=== PATIENT | female | born 1980 | race Caucasian/White ===

== ENCOUNTER 2019-06-21 09:52 | Emergency (ER) | payer OTHER, SELFPAY ==
[2019-06-21 09:59] VITALS: BP 117/84; PULSE 78; RESP 16; TEMP 37.1; O2SAT 100
--- NOTE | 2019-06-21 10:20 | ED.GENADULT ---
HPI - General Adult General Chief complaint: Upper Respiratory Infection Stated complaint: fever cough sore throat Time Seen by Provider: 06/21/19 10:20 Source: patient Mode of arrival: ambulatory Limitations: no limitations History of Present Illness HPI narrative: 38-year-old female patient presents to the [facility] with complaints of cold symptoms for the past 3 days. Patient states that she did not get a flu shot this year. Patient states she has had some runny nose, nasal congestion, sore throat and a slight cough. Did patient states she has been running fevers as high as 100. Denies any chest pain or shortness of breath. Patient denies any abdominal pain, nausea, vomiting or diarrhea. Related Data Home Medications Medication Instructions Recorded Confirmed escitalopram oxalate 20 mg PO DAILY 06/21/19 06/21/19 lisinopril-hydrochlorothiazide 1 tablet PO DAILY 06/21/19 06/21/19 Allergies Allergy/AdvReac Type Severity Reaction Status Date / Time dextromethorphan Allergy Unknown Cough Verified 06/21/19 10:17 Review of Systems Review of Systems: Narrative: CONSTITUTIONAL: Positive subjective fever, denies chills, or sweats. EYES: Denies visual changes, redness, or discharge. ENT: Positive rhinorrhea, congestion, sore throat, denies otalgia. CARDIOVASCULAR: Denies chest pain, palpitations, or edema. RESPIRATORY: Positive mild cough, denies dyspnea. GASTROINTESTINAL: Denies abdominal pain, nausea, vomiting, or diarrhea. GENITOURINARY: Denies dysuria or hematuria. SKIN: Denies rash or itching. MUSCULOSKELETAL: Denies back pain, joint pain, or myalgia. NEUROLOGIC: Denies headache, numbness, or weakness. PSYCHIATRIC: Denies anxiety or depression. [facility] Past Medical History Medical History (Updated 06/21/19 @ 10:30 by CHRISTOPHER Pompa) Anxiety Hypercholesterolemia Hypertension Liver disease Liver mass that is currently being monitored Seasonal allergies Surgical History Surgical History (Updated 06/21/19 @ 10:21 by CHRISTOPHER Pompa) H/O inguinal hernia repair 1 years old H/O sinus surgery Family History Family History Mother Hypertension Father Patient's father is in good health, Onset Age: 65 Family history of elevated blood lipids, Onset Age: 50 Social History Social History Smoking status: Never smoker Alcohol intake: current Comments At the time of my signature I agree with nursing past medical history, surgical, social, and family history. There is no relevant family history pertinent to the presenting complaint. Exam Narrative: Exam Narrative: GENERAL: Well-appearing, well-nourished, and in no acute distress. HEAD: Normocephalic, atraumatic. EYES: PERRLA and EOMI. ENT: Nares with erythema and edema noted bilaterally, patent, no rhinorrhea or epistaxis. Mucous membranes moist. Posterior pharynx with slight erythema but no tonsillar edema no exudates or lesions present. Bilateral TMs are clear with no erythema or foreign bodies in the canal. NECK: Supple. No lymphadenopathy CHEST: Clear to auscultation. No respiratory distress. HEART: Regular rate and rhythm. No murmur heard. Normal peripheral pulses. ABDOMEN: Soft, nontender, nondistended, normal active bowel sounds. EXTREMITIES: Normal range of motion. No edema. SKIN: Warm, dry, no rash. NEURO: No focal deficits. Alert and oriented x3. Course Reevaluation(s) Reevaluation #1: Notify patient she is negative today for strep. Discussed with her that we will discharge her home and she can take symptomatic treatment including Tylenol or ibuprofen for pain fevers, and antihistamine and a nasal spray for the congestion and sinus drainage. Discussed with patient I went ahead and write her off of work today and as long she is not running fever she can go back to work tomorrow. Patient verbalized understanding denies any ot
== END 2019-06-21 10:39 | disposition home or self-care (01) ==
PROVIDERS: Emergency Provider Nurse Practitioner Family; PCP Family Medicine
DX: J06.9 Acute upper respiratory infection, unspecified (principal); J02.9 Acute pharyngitis, unspecified; R05 Cough; F41.9 Anxiety disorder, unspecified; E78.00 Pure hypercholesterolemia, unspecified; I10 Essential (primary) hypertension
CPT/HCPCS: 87081; 87880; 99213; G0463

== ENCOUNTER 2020-03-04 11:17 | Outpatient (NON) | payer OTHER, SELFPAY ==
[2020-03-04 21:25] LABS: SARS-CoV-2 RNA PCR Negative
== END 2020-03-04 11:18 ==
PROVIDERS: PCP Family Medicine; Visit Provider Family Medicine
DX: Z01.812 Encounter for preprocedural laboratory examination (principal); Z20.828 Contact with and (suspected) exposure to other viral communicable diseases
CPT/HCPCS: 87635; C9803; U0003

== ENCOUNTER 2020-03-08 11:52 | Observation (INO) | payer OTHER, SELFPAY ==
[2020-03-08] VITALS (9 sets, daily range): BP systolic 105–123; BP diastolic 76–91; PULSE 73–76; RESP 16–20; TEMP 36.4–37; O2SAT 98–100; BMI 23.0
--- NOTE | ~2020-03-08 | CT_ITS ---
EXAMINATION: CT abdomen pelvis w con DATE: 03/08/2020 13:25 INDICATION: Abdominal pain TECHNIQUE: Computed tomography (CT) of the abdomen and pelvis was performed with 100 mL Omnipaque-350 intravenous contrast. Automated exposure control and iterative reconstruction technique were employe d. The dose-length product was 267.81 mGy-cm. COMPARISON: 10/06/2016 FINDINGS: Lung bases are clear. Heart size is normal. No pericardial or pleural effusion. No interval change in a a few likely benign relatively low-attenuation lesions in segment 3 and 4B of the liver, the large st measuring up to 1.1 cm which can be seen dating back to 07/29/2007. There is a single new 5 mm low-a ttenuation lesion in segment 6 of the liver which is too small to definitively characterize. Spleen, pancreas, left kidney and bilateral adrenal glands are normal. 1 cm right renal cyst. Bowels includin g the appendix are normal. 1.9 cm left ovarian cyst. Bladder, anteverted uterus and right adnexa are normal. No free intraperitoneal gas or fluid. No pathologically enlarged abdominal or pelvic lymphade nopathy. Minimal scattered degenerative skeletal changes. IMPRESSION: 1. No acute intra-abdominal/pelvic process. Reviewed, dictated and finalized at location B.
--- NOTE | 2020-03-08 12:08 | ED.GENADULT ---
HPI - General Adult General Chief complaint: GI Bleed Stated complaint: Blood in Stool Neg Covid Test 03/04 Time Seen by Provider: 03/08/20 11:55 Source: RN notes reviewed History of Present Illness HPI narrative: Patient presents to emergency department from Dr. Bolton's office for GI bleed. Patient states has had approximately 5 episodes of bright red blood per rectum starting this morning. Patient states has been associated with abdominal pain located across the mid abdomen. States that abdominal pain began yesterday. Patient denies any fevers or chills chest pain shortness of breath nausea vomiting or any other symptoms denies any blood thinner use Related Data Home Medications Medication Instructions Recorded Confirmed cetirizine 10 mg tablet 10 mg PO DAILY 07/26/19 Allergies Allergy/AdvReac Type Severity Reaction Status Date / Time dextromethorphan Allergy Unknown Cough Verified 03/08/20 12:21 Review of Systems Review of Systems: Narrative: Gen.: Denies fevers or chills ENT: Denies congestion Respiratory: Denies shortness of breath or cough CV: Denies chest pain or palpitations GI: See HPI denies burning, urgency, frequency or hematuria Musculoskeletal: Denies back pain or muscle pain Neuro: Denies numbness, tingling, weakness or focal weakness Skin: Denies rash Except as documented, all other systems reviewed and negative [facility] Past Medical History Medical History Anxiety Hypercholesterolemia Hypertension Liver disease Liver mass that is currently being monitored Seasonal allergies Surgical History Surgical History (Updated 06/21/19 @ 10:21 by CHRISTOPHER Pompa) H/O inguinal hernia repair 1 years old H/O sinus surgery Family History Family History Mother Hypertension Father Patient's father is in good health, Onset Age: 65 Family history of elevated blood lipids, Onset Age: 50 Social History Social History Smoking packs per day: 0.5 Smoking cigarettes per day: 10.0 Years smoked: 19 Smoking pack-years: 9.50 Smoking status: Current some day smoker Tobacco type: cigarettes Second hand tobacco smoke exposure: No Smoking end date: 03/02/20 Alcohol intake: current Drinks per week: 5 Substance use: never Substance use type: does not use Gender identity (if verbalized by the patient): Male Exam Narrative: Exam Narrative: APPEARANCE: No acute distress, nontoxic, resting in bed HEENT: Normocephalic, atraumatic, OMM RESPIRATORY: No respiratory distress, clear to auscultation bilaterally with no rhonchi wheezing or rales CARDIOVASCULAR: RRR s murmur ABDOMINAL: Soft, nondistended, tender palpation right lower quadrant no tenderness in right upper quadrant and left upper quadrant left lower quadrant, no rebound or guarding Rectal: No hemorrhoids or fissures, no active bleeding, red stool that is Hemoccult positive MUSCULOSKELETAl: Moves all extremities. No clubbing, cyanosis or edema. NEURO: Awake and alert. Following commands, speech normal, no focal deficits SKIN:: Warm, dry. Normal Color PSYCHIATRIC: Normal affect/mood Course Course Emergency Course: Called and discussed with ALONDRA Campos for Dr. Garcia presentation work-up agrees with admission at this time Discussed with Dr. Conway for GI presentation work-up. We will plan for n.p.o. after midnight Discussed with patient and family results of workup and diagnosis. Discussed need for admission. Patient and family understand and agree to current treatment plan Vital Signs Vital signs: Vital Signs Temperature 97.6 F 03/08/20 12:15 Pulse Rate 75 03/08/20 12:15 Respiratory Rate 18 03/08/20 12:15 Blood Pressure 113/82 03/08/20 12:15 Pulse Oximetry 100 03/08/20 12:15 Temperature 97.6 F 03/08/20 12:15 Pulse Rate 7
[2020-03-08 12:29] LABS: Basophils Percent Auto 0.5 % (0.2-1.2); Eosinophils Absolute Auto 0.1 K/mm3 (0-0.3); Eosinophils Percent Auto 1.2 % (0-4.4); Hematocrit 38.2 % (37.0-47.0); Hemoglobin 13.4 g/dL (12.0-15.0); Immature Granulocyte Absolute 0.02 K/mm3 (0.00-0.031); Immature Granulocyte Percent A 0.2 % (0-0.5); Lymphocytes Absolute Auto 2.55 K/mm3 (0.9-3.2); Lymphocytes Percent Auto 31.2 % (18.3-44.2); Mean Corpuscular HGB Conc 35.1 g/dl (32-36); Mean Corpuscular Hemoglobin 33.2 pg (26-34); Mean Corpuscular Volume 94.6 fl (80-100); Mean Platelet Volume 10.1 fl (7.4-10.4); Monocytes Absolute Auto 0.5 K/mm3 (0.1-0.6); Monocytes Percent Auto 6.1 % (2.6-8.5); Neutrophils Percent Auto 60.8 % (45.5-73.1); Platelet Count Result 250 k/mm3 (150-375); Red Blood Count 4.04 M/mm3 (4.2-5.4); Red Cell Distribution Width 12.3 % (11.5-14.5); White Blood Count 8.2 K/mm3 (4.5-10.0)
[2020-03-08] MEDS: SODIUM CHLORIDE 0.9% IV 1,000 ML 999 ML IV CONT (12:30)
[2020-03-08 12:39] LABS: Partial Thromboplastin Time 29.6 SECONDS (22.3-36.8); Prothrombin Time 12.6 Seconds (11.1-14.7)
[2020-03-08 12:41] LABS: Alanine Aminotransferase 18 U/L (4-35); Albumin Level 4.8 g/dL (3.5-5.1); Alkaline Phosphatase 61 U/L (38-126); Anion Gap 11 mmol/L (8-16); Aspartate Amino Transferase 29 U/L (14-36); Bilirubin,Total 0.7 mg/dL (0.2-1.3); Blood Urea Nitrogen 12 mg/dL (7-17); Calcium 9.7 mg/dL (8.4-10.2); Carbon Dioxide 24 mmol/L (22-30); Chloride 103 mmol/L (98-107); Estimated CRCL calculation 75 ml/min; Estimated Glomerular Filt Rate > 60; Glucose 103 mg/dL (65-105); Lactic Acid Reflex 0.7 mmol/L (0.7-2.1); Potassium 3.9 mmol/L (3.4-5.0); Sodium 138 mmol/L (137-145)
[2020-03-08 14:27] LABS: Hematocrit 35.1 % (37.0-47.0); Hemoglobin 12.2 g/dL (12.0-15.0)
--- NOTE | 2020-03-08 14:30 | PM.IMHP ---
H&P: HPI History of Present Illness Date/Time: 03/08/20 14:30 Chief complaint: Rectal bleeding. Narrative: Mary Zimmerman is a 39-year-old female with hypertension, depression, and anxiety who presented to the emergency department earlier today for evaluation of rectal bleeding. She was awakened from sleep at approximately 03:00 with diffuse abdominal cramping. Shortly thereafter she had the urge to have a bowel movement and reports having a large bout of diarrhea, which she goes on to say is not unusual for her as she reportedly has a history of irritable bowel syndrome. In any regard, she continued to have intermittent abdominal cramping but then began passing bright red blood per rectum for total 5 to 6 times since the outset today. There is no pain when having bowel movements, only the abdominal cramping prior to. She perhaps had some slight nausea around the same period of time, has been having more belching the unusual, and has also had mild lightheadedness. She has never had similar symptoms in the past but recalls one occasion in which she noticed a small amount of bright red blood on the toilet tissue after straining to have a bowel movement. She has no known history of hemorrhoids, diverticulosis, or diverticulitis. She denies GERD and symptoms of indigestion. No history of peptic ulcers. Of note, last weekend she was suffering from a headache and sinus congestion and developed a fever up to 102? on Wednesday which persisted through Wednesday. She was taking Tylenol to treat her fevers, and denies using NSAIDs. She does note that she tested negative for COVID this past Wednesday. Review of Systems Review of Systems: Narrative: Twelve systems were reviewed with pertinent positives and negatives as per HPI. She has been afebrile since Wednesday with sinus symptoms last as detailed in HPI. No recent travel. No exposure to those positive for COVID-19 to her knowledge. She had a mild cough over the weekend but that has resolved. No shortness of breath. She denies chest pain and palpitations. No syncope or near syncope. Last menstrual period was at the end of January. Of note, I received a call from the patient's nurse that during her screening questions that she had been slight for being a moderate risk for suicide. With further questioning she reports that about 3 years ago she took an excess amount of pills in a suicidal gesture, but no longer has thoughts of suicide, homicide, and she denies having a plan for such. Except as documented, all other systems were reviewed and are negative. [facility] Past Medical History Medical History (Updated 03/08/20 @ 19:39 by Beth Maguire PA-C) Anxiety Depression With history of suicidal gesture in 2017. Hypercholesterolemia Hypertension Liver mass Incidental masses noted on the liver with prior CT of the abdomen pelvis, being monitored. Seasonal allergies Surgical History Surgical History (Updated 03/08/20 @ 19:36 by Beth Maguire PA-C) History of inguinal hernia repair (~1980) History of sinus surgery Family History Family History Mother Hypertension Fibromyalgia Diverticulosis Father Patient's father is in good health, Onset Age: 65 Lymphoma Social History Social History (Updated 03/08/20 @ 19:38 by Beth Maguire PA-C) Social History: Surrogate decision maker: Barbara Alonzo, friend. Code status: Full code. Smoking packs per day: 0.5 Smoking cigarettes per day: 10.0 Years smoked: 20 Smoking pack-years: 10.00 Smoking status: Former smoker Tobacco type: cigarettes Second hand tobacco smoke exposure: No Smoking end date: 03/02/20 Alcohol intake: current Drinks per week: 12 Substance use: never Substance use type: does not use Additional living arrangements comments: Lives in her own home in both also with her dog. She has no children. Additional occupatio
--- NOTE | 2020-03-08 14:40 | PC.NURSE ---
Continue to await bed assignment. Denies needs at present.
--- NOTE | 2020-03-08 15:30 | PC.NURSE ---
Report to ROSALINDA Paul, to continue care. Awaiting bed assignment.
--- NOTE | 2020-03-08 17:14 | ADMGEN ---
This patient, Mary Zimmerman, was admitted to 3 [facility] Surg Room 313-01 @ 1713. Patient/family oriented to hospital policies and general routines including ID bracelet, bed and alarms, visiting hours, pain management, procedures, bathroom and other care routines, personal items, smoking policy, room service/diet, and visiting hours. Information on how to activate the Rapid Response Team has been discussed. Patient/Family are encouraged to report perceived risks to care and to ask questions if they do not understand what they are told or what they should do.
[2020-03-08] MEDS: SODIUM CHLORIDE 0.9% IV 1,000 ML 125 ML IV CONT (17:48)
[2020-03-08] MEDS: ONDANSETRON INJ 4 MG/2 ML VIAL IV PUSH (23:30)
[2020-03-09 03:25] LABS: Basophils Percent Auto 0.5 % (0.2-1.2); Eosinophils Absolute Auto 0.1 K/mm3 (0-0.3); Eosinophils Percent Auto 0.9 % (0-4.4); Hematocrit 35.6 % (37.0-47.0); Hemoglobin 12.3 g/dL (12.0-15.0); Immature Granulocyte Absolute 0.03 K/mm3 (0.00-0.031); Immature Granulocyte Percent A 0.4 % (0-0.5); Lymphocytes Absolute Auto 2.21 K/mm3 (0.9-3.2); Lymphocytes Percent Auto 27.5 % (18.3-44.2); Mean Corpuscular HGB Conc 34.6 g/dl (32-36); Mean Corpuscular Hemoglobin 33.3 pg (26-34); Mean Corpuscular Volume 96.5 fl (80-100); Monocytes Absolute Auto 0.4 K/mm3 (0.1-0.6); Monocytes Percent Auto 5.2 % (2.6-8.5); Neutrophils Absolute Auto 5.3 K/mm3 (1.3-6.7); Neutrophils Percent Auto 65.5 % (45.5-73.1); Platelet Count Result 238 k/mm3 (150-375); Red Blood Count 3.69 M/mm3 (4.2-5.4); Red Cell Distribution Width 12.6 % (11.5-14.5)
[2020-03-09 03:35] LABS: Anion Gap 5 mmol/L (8-16); Blood Urea Nitrogen 10 mg/dL (7-17); Calcium 9.1 mg/dL (8.4-10.2); Carbon Dioxide 27 mmol/L (22-30); Chloride 108 mmol/L (98-107); Estimated CRCL calculation 75 ml/min; Estimated Glomerular Filt Rate > 60; Glucose 108 mg/dL (65-105); Potassium 4.1 mmol/L (3.4-5.0); Sodium 140 mmol/L (137-145)
[2020-03-09 06:00] VITALS: BP 106/70; PULSE 76; RESP 20; TEMP 36.9; O2SAT 98
[2020-03-09 08:00] VITALS: PULSE 76; RESP 20; O2SAT 98
--- NOTE | 2020-03-09 08:16 | WPDGICN ---
Assessment and Plan Assessment and plan (1) Rectal bleeding: Code(s): K62.5 - Hemorrhage of anus and rectum Status: Acute Assessment and Plan: probably infectious gastroenteritis/colitis, less likely ischemic colitis however she is feeling much better now. Hb stable, no fever, no leukocytosis, CT scan was unremarkable. Will advance her diet and if she can tolerate and still asymptomatic then she can go home and follow up office she also will need a colonoscopy as outpatient, probably in 4-6 weeks (2) Abdominal pain: Code(s): R10.9 - Unspecified abdominal pain Status: Acute Assessment and Plan: improved now, much better (3) Diarrhea: Code(s): R19.7 - Diarrhea, unspecified Status: Acute Assessment and Plan: will get stool cultures if she has more diarrhea (4) Hypertension: Code(s): I10 - Essential (primary) hypertension Status: Acute GI Consult Note Consult date/time: 03/09/20 08:16 Reason for consult: rectal bleeding, abdominal pain HPI: Mary Zimmerman is a 39 year old female with history of hypertension, depression, and anxiety who came to the emergency department yesterday with rectal bleeding. She says that about a week ago had flu-like symptoms, headache with fever, tested negative for COVID this past Wednesday and was feeling better but she was awakened from sleep yesterday with diffuse abdominal cramping followed by large amount of watery diarrhea then had total of 5-6 episodes of bright red blood per rectum for total 5 to 6 times since the outset today. CT scan in ER was normal, also normal CBC and CMP and no fever. She was admitted to hospital. She has not had any more diarrhea, bleeding or pain since admission. Doing much better. She denies GERD and symptoms of indigestion. No history of peptic ulcers. Of note, last weekend she was suffering from a headache and sinus congestion and developed a fever up to 102? on Wednesday which persisted through Wednesday. She was taking Tylenol to treat her fevers, and denies using NSAIDs. Never had colonoscopy. She says that at baseline has IBS but almost never bothers her. Review of Systems Constitutional: Constitutional: Reports chills and Denies headache(s) Eyes: Eyes: Denies blurry vision ENT: Reports Normal hearing present, Denies headache(s) and Denies neck pain Cardiovascular: Cardiovascular: Denies chest pain and Denies dyspnea Respiratory: Respiratory: Denies dyspnea Gastrointestinal: Gastrointestinal: Reports abdominal pain, Reports hematochezia and Reports diarrhea Genitourinary: Genitourinary: Denies dysuria Musculoskeletal: Musculoskeletal: Denies neck pain Integumentary/Breasts: Skin/Breast: Denies dry skin Neurologic: Reports Normal hearing present, Denies headache(s) and Denies weakness Psychiatric: Psychiatric: Denies anxiety Endocrine: Endocrine: Denies change in body appearance Hematologic/Lymphatic: Hematologic/Lymphatic: Denies easy bleeding Allergic/Immunologic: Allergic/Immunologic: Denies urticaria PMFSH Past Medical History Medical History (Updated 03/09/20 @ 08:22 by Timo Garcia MD) Anxiety Depression With history of suicidal gesture in 2017. Diarrhea Hypercholesterolemia Hypertension Liver mass Incidental masses noted on the liver with prior CT of the abdomen pelvis, being monitored. Rectal bleeding Seasonal allergies Surgical History Surgical History (Updated 03/08/20 @ 19:36 by Beth Maguire PA-C) History of inguinal hernia repair (~1980) History of sinus surgery Family History Family History Mother Hypertension Fibromyalgia Diverticulosis Father Patient's father is in good health, Onset Age: 65 Lymphoma Social History Social History (Updated 03/08/20 @ 19:38 by Beth Maguire PA-C) Social History: Surrogate decision maker: Barbara Alonzo, friend. Code sta
[2020-03-09 08:41] LABS: Hemoglobin 11.9 g/dL (12.0-15.0)
[2020-03-09] MEDS: hydroCHLOROthiazide 12.5 MG CAPSULE PO (09:48)
[2020-03-09] MEDS: CHOLECALCIFEROL 1,000 UNITS TABLET 5000 UNITS PO (09:48)
[2020-03-09] MEDS: LORATADINE 10 MG TABLET PO (09:49)
[2020-03-09] MEDS: lisinopriL 10 MG TABLET PO (09:49)
[2020-03-09] MEDS: ESCITALOPRAM OXALATE 10 MG TABLET 20 MG PO (09:49)
[2020-03-09 14:00] VITALS: BP 111/72; PULSE 90; RESP 16; TEMP 36.3; O2SAT 100
--- NOTE | 2020-03-09 16:16 | PM.IMPN ---
Progress Note: A&P Assessment and Plan (1) GI bleed: Code(s): K92.2 - Gastrointestinal hemorrhage, unspecified Status: Acute (2) Hypertension: Code(s): I10 - Essential (primary) hypertension Status: Acute (3) Anxiety: Code(s): F41.9 - Anxiety disorder, unspecified Status: Acute Additional Plan 03/08/20:: The patient was admitted to the hospital service overnight for further evaluation of lower GI bleed. Most likely hemorrhoidal or possibly even diverticular bleeding; no evidence of diverticulitis or other acute pathology by CT of the abdomen /pelvis. Hemoglobin 12.2. Dr. Garcia has been consulted and his input is appreciated. Her blood pressures were reviewed and they are well controlled on her home medication. Escitalopram resumed for anxiety and history of depression; no acute concerns or issues despite elevated [place] suicide score (increased due to prior history of suicidal gesture). 03/09/20:: No recurrent episodes of rectal bleeding but no BMs either. Probably infectious bloody diarrhea. Check stool culture to exclude EColi. She did have viral illness with high fevers a few days prior to admission. Hgb relatively stable with repeat at 11.9. Continue low fiber diet for now. Appreciate GI input. SCDs for DVT prophylaxis. Subjective Date/time seen: 03/09/20 16:16 Interval history: Date of service: 03/09 39yo female here for GI bleed. She feels better. Abd pain better until she ate and now worse. No BMs since admisisn. No n/v. Concerned about recurrent symptoms. Abd pain mostly RLQ and left flank Exam Narrative: Exam Narrative: AF 97.4 111/72 90 16 100% ra Gen - NARD Chest - CTA bilaterally, nml RR CV - RRR S1/S2 Abd - Soft, ND, Positive BS, no guarding Ext - No pedal edema Psych - Nml mood and affect Skin - Warm and dry Objective Data Vital Signs Vital Signs: Vital Signs - 24 hr 03/08/20 17:18 03/08/20 22:00 03/09/20 06:00 Temperature 97.5 F L 98.6 F 98.4 F Pulse Rate 73 75 76 Respiratory Rate 18 20 20 Blood Pressure 123/82 118/76 106/70 Pulse Oximetry 100 100 98 03/09/20 08:00 03/09/20 14:00 Temperature 97.4 F L Pulse Rate 76 90 Respiratory Rate 20 16 Blood Pressure 111/72 Pulse Oximetry 98 100 Intake/Output Intake/Output: Intake & Output 03/06/20 03/07/20 03/08/20 03/09/20 23:59 23:59 23:59 23:59 Intake Total 1000 980 Output Total 300 Balance 1000 680 Meds/Results Medications: Active Medications Generic Name Dose Route Start Last Admin Trade Name Freq PRN Reason Stop Dose Admin Escitalopram Oxalate 20 mg 03/09/20 09:00 03/09/20 09:49 Escitalopram Oxalate 10 Mg Tablet PO 20 mg DAILY GRACY Administration Hydrochlorothiazide 12.5 mg 03/09/20 09:00 03/09/20 09:48 Hydrochlorothiazide 12.5 Mg Capsule PO 12.5 mg DAILY GRACY Administration Lisinopril 10 mg 03/09/20 09:00 03/09/20 09:49 Lisinopril 10 Mg Tablet PO 10 mg DAILY GRACY Administration Loratadine 10 mg 03/09/20 09:00 03/09/20 09:49 Loratadine 10 Mg Tablet PO 10 mg QAM GRACY Administration Ondansetron HCl 4 mg 03/08/20 22:16 03/08/20 23:30 Ondansetron Inj 4 Mg/2 Ml Vial IV PUSH 4 mg Q6H PRN Administration Nausea And Vomiting Vitamin D 5,000 units 03/09/20 09:00 03/09/20 09:48 Cholecalciferol 1,000 Units Tablet PO 5,000 units DAILY GRACY Administration Radiology Results: ITS Impressions Abdomen/Pelvis CT 03/08/20 13:27 IMPRESSION: 1. No acute intra-abdominal/pelvic process. Labs Labs: Laboratory Results - last 24 hr 03/09/20 03/09/20 03/09/20 03:15 03:15 08:24 WBC 8.0 RBC 3.69 L Hgb 12.3 11.9 L Hct 35.6 L 34.0 L MCV 96.5 MCH 33.3 MCHC 34.6 RDW 12.6 Plt Count 238 MPV 10.0 Immature Gran % (Auto) 0.4 Neut % (Auto) 65.5 Lymph % (Auto) 27.5 [place] % (Auto) 5.2 Eos % (Auto) 0.9 Baso % (Auto) 0.5 Lymph
[2020-03-09 17:13] LABS: Hematocrit 35.7 % (37.0-47.0); Hemoglobin 12.5 g/dL (12.0-15.0)
[2020-03-09 22:00] VITALS: BP 102/66; PULSE 68; RESP 16; TEMP 36.7; O2SAT 99
[2020-03-10 06:00] VITALS: BP 100/63; PULSE 78; RESP 16; TEMP 36.4; O2SAT 100
[2020-03-10 06:25] LABS: Hematocrit 37.1 % (37.0-47.0); Hemoglobin 12.8 g/dL (12.0-15.0); Mean Corpuscular HGB Conc 34.5 g/dl (32-36); Mean Corpuscular Hemoglobin 33.3 pg (26-34); Mean Corpuscular Volume 96.6 fl (80-100); Mean Platelet Volume 10.2 fl (7.4-10.4); Platelet Count Result 277 k/mm3 (150-375); Red Blood Count 3.84 M/mm3 (4.2-5.4); Red Cell Distribution Width 12.6 % (11.5-14.5); White Blood Count 6.8 K/mm3 (4.5-10.0)
[2020-03-10] MEDS: LORATADINE 10 MG TABLET PO (08:39)
[2020-03-10] MEDS: ESCITALOPRAM OXALATE 10 MG TABLET 20 MG PO (08:39)
[2020-03-10] MEDS: hydroCHLOROthiazide 12.5 MG CAPSULE PO (08:40)
[2020-03-10] MEDS: lisinopriL 10 MG TABLET PO (08:40)
[2020-03-10] MEDS: CHOLECALCIFEROL 1,000 UNITS TABLET 5000 UNITS PO (08:40)
--- NOTE | 2020-03-10 10:44 | WPDGIPROGNO ---
Progress Note: A&P Assessment and Plan (1) Rectal bleeding: Code(s): K62.5 - Hemorrhage of anus and rectum Status: Acute Assessment and Plan: resolved with stable hb she can go home today and then I will set up for a colonoscopy in 4-6 weeks (2) Diarrhea: Code(s): R19.7 - Diarrhea, unspecified Status: Acute Assessment and Plan: had flu-like symptoms, then diarrhea but feeling better now afebrile, normal wbc and also unremarkable ct scan tolerating diet she can go home (3) Hypertension: Code(s): I10 - Essential (primary) hypertension Status: Acute Subjective Date/time seen: 03/10/20 10:44 Interval history: she had breakfast and is feeling much better, no blood in stools. She thinks that can go home today. Review of Systems Review of Systems: All systems reviewed & are unremarkable except as noted in HPI and below Exam Const: General: comfortable and no acute distress HENMT: General nose exam: Normal nares present Eyes: General: appearance normal, both eyes and all related structures Neck: Neck: no JVD Resp: Auscultation: clear to auscultation bilaterally Cardio: Rate: regular rate Rhythm: regular rhythm GI: Inspection: non-distended GI Palp: Yes Soft to palpation and No Tenderness to palpation present (GI) Auscultation: normal bowel sounds Skin: General skin exam: normal color Neuro: General: gait normal Speech: normal speech Extrem: General: normal to inspection Psych: Mental Status: mental status grossly normal Objective Data Vital Signs Vital Signs: Vital Signs - 24 hr 03/09/20 14:00 03/09/20 22:00 03/10/20 06:00 Temperature 97.4 F L 98.0 F 97.5 F L Pulse Rate 90 68 78 Respiratory Rate 16 16 16 Blood Pressure 111/72 102/66 100/63 Pulse Oximetry 100 99 100 Intake/Output Intake/Output: Intake & Output 03/07/20 03/08/20 03/09/20 03/10/20 23:59 23:59 23:59 23:59 Intake Total 1000 1530 650 Output Total 1100 1200 Balance 1000 430 -550 Meds/Results Medications: Active Medications Generic Name Dose Route Start Last Admin Trade Name Freq PRN Reason Stop Dose Admin Escitalopram Oxalate 20 mg 03/09/20 09:00 03/10/20 08:39 Escitalopram Oxalate 10 Mg Tablet PO 20 mg DAILY GRACY Administration Hydrochlorothiazide 12.5 mg 03/09/20 09:00 03/10/20 08:40 Hydrochlorothiazide 12.5 Mg Capsule PO 12.5 mg DAILY GRACY Administration Lisinopril 10 mg 03/09/20 09:00 03/10/20 08:40 Lisinopril 10 Mg Tablet PO 10 mg DAILY GRACY Administration Loratadine 10 mg 03/09/20 09:00 03/10/20 08:39 Loratadine 10 Mg Tablet PO 10 mg QAM GRACY Administration Ondansetron HCl 4 mg 03/08/20 22:16 03/08/20 23:30 Ondansetron Inj 4 Mg/2 Ml Vial IV PUSH 4 mg Q6H PRN Administration Nausea And Vomiting Vitamin D 5,000 units 03/09/20 09:00 03/10/20 08:40 Cholecalciferol 1,000 Units Tablet PO 5,000 units DAILY GRACY Administration Radiology Results: ITS Impressions Abdomen/Pelvis CT 03/08/20 13:27 IMPRESSION: 1. No acute intra-abdominal/pelvic process. Labs Labs: Laboratory Results - last 24 hr 03/09/20 03/10/20 17:09 05:54 WBC 6.8 RBC 3.84 L Hgb 12.5 12.8 Hct 35.7 L 37.1 MCV 96.6 MCH 33.3 MCHC 34.5 RDW 12.6 Plt Count 277 MPV 10.2
--- NOTE | 2020-03-10 11:18 | PM.DS ---
DS: Admitting Diagnosis Admitting Diagnosis Admitting Diagnosis: Rectal bleeding. DS: Discharge Diagnosis Discharge Diagnosis (1) GI bleed: Code(s): K92.2 - Gastrointestinal hemorrhage, unspecified Status: Acute (2) Hypertension: Code(s): I10 - Essential (primary) hypertension Status: Acute (3) Anxiety: Code(s): F41.9 - Anxiety disorder, unspecified Status: Acute DS: Summary Hospital Course Reason for hospitalization: 39yo female here for GI bleed. Please see H&P for details. Hospital Course: 03/08/20:: The patient was admitted to the hospitalist service for further evaluation of lower GI bleed. Most likely hemorrhoidal or possibly even diverticular bleeding; no evidence of diverticulitis or other acute pathology by CT of the abdomen/pelvis. Hemoglobin 12.2. Dr. Garcia was consulted and his input was appreciated. Escitalopram was resumed for anxiety and history of depression; no acute concerns or issues despite elevated Howell suicide score (increased due to prior history of suicidal gesture). 03/09/20:: No recurrent episodes of rectal bleeding but no BMs either. Probably infectious bloody diarrhea. Stool culture ordered to exclude EColi but no further BMs so nothing collected. She did have viral illness with high fevers a few days prior to admission. Hgb relatively stable with repeat at 11.9. Her blood pressures was monitored and BP remained well controlled on her home medication. 03/10/20:: Patient with slight pain after eating but otherwaise feels well. No problems overnight. Hgb 12.8. No BMs since admission. She feels ready for discharge. Plan for outpatient colonoscopy. Lloyd has a GI specialist in [place] and she will contact this provider to set up outpatient colonoscopy. Okay for discharge. Status at Discharge Functional status at discharge: independent ambulation Overall status at discharge: patient is back to baseline Time Spent with Patient Time attestation: Total time spent providing and/or coordinating discharge services: 32 minutes Time spent: Greater than 30 minutes Exam Narrative: Exam Narrative: AF 97.5 100/63 78 16 100% ra Gen - NARD Chest - CTA bilaterally, nml RR CV - RRR S1/S2 Abd - Soft, NT/ND, Positive BS Ext - No pedal edema Psych - Nml mood and affect Skin - Warm and dry DS: Data Data Completed and Pending Labs on day of discharge: Labs from last 24 hours 03/10/20 03/09/20 05:54 17:09 WBC 6.8 RBC 3.84 L Hgb 12.8 12.5 Hct 37.1 35.7 L MCV 96.6 MCH 33.3 MCHC 34.5 RDW 12.6 Plt Count 277 MPV 10.2 Discharge Plan Discharge Attending physician on discharge: Fabiano Pepper Consulting providers: Timo Garcia Discharging Clinician: Fabiano Pepper Anticipated Discharge Date/Time: 03/10/20 11:24 Patient Disposition: Home, Self-Care Activity: as tolerated Diet: low fiber Discharge Instructions: Please avoid large gathering, wear face coverings in public and practice social distance. Follow-up with your GI doctor in [place] to arrange for outpatient colonoscopy Follow-up with your doctor in 1-2 weeks. Please call for appointment. Patient Instructions: Antibiotic Form, Gastrointestinal Bleeding (DC), Irritable Bowel Syndrome (DC), Pain Management (GEN) Stand Alone Forms: General Discharge Information Follow-up/Referrals: Андрей Bolton MD [Primary Care Provider] - Call for Appointment Discharge Medications: Continued cetirizine [Zyrtec] 10 mg tablet 10 mg PO DAILY RF: 0 cholecalciferol (vitamin D3) 125 mcg (5,000 unit) Capsule 125 mcg PO DAILY RF: 0 hydrochlorothiazide 12.5 mg tablet 12.5 mg PO DAILY RF: 0 lisinopril 10 mg tablet 10 mg PO DAILY Qty: 90 RF: 1 escitalopram oxalate 20 mg tablet 20 mg PO DAILY Qty: 90 RF: 0 Date of admission: 03/08/20 13:51 Primary Care Provider: Андрей Bolton
== END 2020-03-10 12:15 | disposition home or self-care (01) ==
LOC: ANHED 14:14 → ANH3MEDSUR 15:28
PROVIDERS: Admitting Provider Internal Medicine; Emergency Provider Emergency Medicine; PCP Family Medicine; Visit Provider Internal Medicine
DX: K92.2 Gastrointestinal hemorrhage, unspecified (principal); I10 Essential (primary) hypertension; F41.9 Anxiety disorder, unspecified; R10.9 Unspecified abdominal pain; F32.9 Major depressive disorder, single episode, unspecified; E78.00 Pure hypercholesterolemia, unspecified; R16.0 Hepatomegaly, not elsewhere classified; Z87.891 Personal history of nicotine dependence; K62.5 Hemorrhage of anus and rectum; R19.7 Diarrhea, unspecified
CPT/HCPCS: 36415; 74177; 80048; 80053; 81025; 83605; 85014; 85018; 85025; 85027; 85610; 85730; 86850; 86900; 86901; 96361; 96365; 96374; 99285; A9270; G0378; J0131; J2405; J7030; Q9967

== ENCOUNTER 2020-09-10 12:40 | Emergency (ER) | payer OTHER, SELFPAY ==
[2020-09-10 12:48] VITALS: BP 107/78; PULSE 70; RESP 14; TEMP 37.2; O2SAT 99
--- NOTE | 2020-09-10 13:50 | ED.FEMALEGU ---
HPI - Female Genitourinary General Chief complaint: Urogenital-Female Stated complaint: uti Time Seen by Provider: 09/10/20 13:30 Source: patient and RN notes reviewed Mode of arrival: ambulatory Limitations: no limitations History of Present Illness HPI Narrative: 40 year old female who presents to [facility] care with complaints of 2 day history of urgency, frequency and burning with urination. Patient denies any nausea or vomiting or any vaginal discharge or itching. Patient states that she has some suprapubic pressure, denies any CVA tenderness or any pain to her abdominal area. Patient has taken AZO OTC for her discomfort. Patient denies any new sexual partners, denies any fevers, chills or sweats. MD elicited complaint: dysuria and other (suprapubic pressure) Onset (ago): day(s) (2) Location of symptoms: suprapubic (pressure) Severity: moderate Female Urogenital Radiation: Suprapubic Severity scale (1-10): 5 Quality of pain: other (pressure) Consistency: constant Vaginal discharge: none Vaginal bleeding: none Urinary symptoms: Dysuria, Urgency and Frequency Exacerbating factors: none Relieving factors: none Associated symptoms: denies other symptoms Treatment prior to arrival: OTC urinary analgesics Patient : No Related Data Home Medications Medication Instructions Recorded Confirmed cetirizine 10 mg tablet 10 mg PO DAILY 07/26/19 09/10/20 cholecalciferol (vitamin D3) 125 mcg PO DAILY 03/08/20 09/10/20 Allergies Allergy/AdvReac Type Severity Reaction Status Date / Time dextromethorphan Allergy Unknown Cough Verified 09/10/20 12:58 Review of Systems Review of Systems: Narrative: CONSTITUTIONAL: Denies fever, chills, or sweats. EYES: Denies visual changes, redness, or discharge. ENT: Denies rhinorrhea, congestion, sore throat, or otalgia. CARDIOVASCULAR: Denies chest pain, palpitations, or edema. RESPIRATORY: Denies cough or dyspnea. GASTROINTESTINAL: Denies abdominal pain states suprapubic pressure denies any nausea, vomiting, or diarrhea. GENITOURINARY: positive dysuria no visible hematuria. SKIN: Denies rash or itching. MUSCULOSKELETAL: Denies back pain, joint pain, or myalgia. NEUROLOGIC: Denies headache, numbness, or weakness. PSYCHIATRIC: Denies anxiety or depression. All systems reviewed & are unremarkable except as noted in HPI and below PMFSH Past Medical History Medical History Anxiety Depression With history of suicidal gesture in 2017. Diarrhea Hypercholesterolemia Hypertension Liver mass Incidental masses noted on the liver with prior CT of the abdomen pelvis, being monitored. Rectal bleeding Seasonal allergies Surgical History Surgical History History of inguinal hernia repair (~1980) History of sinus surgery Family History Family History Mother Hypertension Fibromyalgia Diverticulosis Father Patient's father is in good health, Onset Age: 65 Lymphoma Social History Social History (Updated 09/13/20 @ 16:52 by Susan Arnold NP) Social History: Surrogate decision maker: Barbara Alonzo, friend. Code status: Full code. Smoking packs per day: 0.5 Smoking cigarettes per day: 10.0 Years smoked: 20 Smoking pack-years: 10.00 Smoking status: Current every day smoker Tobacco type: cigarettes Second hand tobacco smoke exposure: No Alcohol intake: current Drinks per week: 12 Substance use: never Substance use type: does not use Living arrangements: alone Additional living arrangements comments: Lives in her own home in both also with her dog. She has no children. 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 Gender identity (if verbalized by the patient): Female Spiritual care concerns: No Comments At time of signature, agree
== END 2020-09-10 14:01 | disposition home or self-care (01) ==
PROVIDERS: Emergency Provider Registered Nurse; PCP Family Medicine
DX: N39.0 Urinary tract infection, site not specified (principal); Z87.891 Personal history of nicotine dependence; F41.9 Anxiety disorder, unspecified; F32.9 Major depressive disorder, single episode, unspecified; E78.00 Pure hypercholesterolemia, unspecified; I10 Essential (primary) hypertension
CPT/HCPCS: 81003; 87077; 87086; 87088; 87186; 99213; G0463

== ENCOUNTER 2021-03-28 15:27 | Emergency (ER) | payer OTHER, SELFPAY ==
--- NOTE | 2021-03-28 15:33 | ED.FEMALEGU ---
HPI - Female Genitourinary General Chief complaint: Urogenital-Female Stated complaint: UTI Time Seen by Provider: 03/28/21 15:28 Source: patient and RN notes reviewed History of Present Illness HPI Narrative: Patient is a 40-year-old female who presents the urgent care with complaints of a possible UTI for the last week. Patient has been having urinary frequency, urgency and dysuria. Patient states that she has had UTIs in the past. It was noted in her chart that she was last treated in August for UTI with Keflex. Patient currently denies of any fever, chills, nausea, vomiting, abdominal pain. Patient has taken Tylenol for her symptoms. No other complaints. No acute distress noted. Patient of care. Some parts of this dictation were generated by voice recognition software and may contain typographical and/or grammatical inaccuracies. Related Data Home Medications Medication Instructions Recorded Confirmed cetirizine 10 mg tablet 10 mg PO DAILY 07/26/19 03/28/21 cholecalciferol (vitamin D3) 125 mcg PO DAILY 03/08/20 11/12/20 Allergies Allergy/AdvReac Type Severity Reaction Status Date / Time dextromethorphan Allergy Unknown Cough Verified 10/09/20 14:28 Review of Systems Review of Systems: CONSTITUTIONAL: Denies fever, chills, or sweats. EYES: Denies visual changes, redness, or discharge. ENT: Denies rhinorrhea, congestion, sore throat, or otalgia. CARDIOVASCULAR: Denies chest pain, palpitations, or edema. RESPIRATORY: Denies cough or dyspnea. GASTROINTESTINAL: Denies abdominal pain, nausea, vomiting, or diarrhea. GENITOURINARY: Reports of urinary frequency, urgency and dysuria SKIN: Denies rash or itching. MUSCULOSKELETAL: Denies back pain, joint pain, or myalgia. NEUROLOGIC: Denies headache, numbness, or weakness. All other systems reviewed are negative, except as documented in HPI. [facility] Past Medical History Medical History Anxiety Depression With history of suicidal gesture in 2017. Diarrhea Hypercholesterolemia Hypertension Liver mass Incidental masses noted on the liver with prior CT of the abdomen pelvis, being monitored. Rectal bleeding Seasonal allergies Surgical History Surgical History History of inguinal hernia repair (~1980) History of sinus surgery Family History Family History Mother Hypertension Fibromyalgia Diverticulosis Father Patient's father is in good health, Onset Age: 65 Lymphoma Social History Social History (Updated 11/12/20 @ 16:20 by Teodora Powell) Social History: Surrogate decision maker: Barbara Clinton, friend. Code status: Full code. Smoking packs per day: 0.5 Smoking cigarettes per day: 10.0 Years smoked: 20 Smoking pack-years: 10.00 Smoking status: Never smoker Tobacco type: cigarettes Second hand tobacco smoke exposure: No Alcohol intake: current Drinks per week: 12 Alcohol use details: social drinker Substance use: never Substance use type: does not use Additional living arrangements comments: Lives in her own home in both also with her dog. She has no children. 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 Gender identity (if verbalized by the patient): Female Spiritual care concerns: No Comments At the time of my signature, I reviewed and agree with the nursing past medical, surgical, social, and family history. There is no relevant family history pertinent to the patient complaint. Exam Narrative: GENERAL: This is a well-nourished, well-developed patient, in no apparent distress. HEAD: normocephalic, atraumatic. EYES: PERRL. Sclera clear/white. Vision is grossly intact. EARS: External ears normal NOSE: External nose normal with no obvious nasal discharge, nares without redness, no rhinor
[2021-03-28 15:34] VITALS: BP 123/79; PULSE 73; RESP 16; TEMP 36.7; O2SAT 96
== END 2021-03-28 16:09 | disposition home or self-care (01) ==
PROVIDERS: Emergency Provider Nurse Practitioner Family; PCP Family Medicine
DX: N39.0 Urinary tract infection, site not specified (principal); F17.210 Nicotine dependence, cigarettes, uncomplicated; E78.00 Pure hypercholesterolemia, unspecified; I10 Essential (primary) hypertension; F32.A Depression, unspecified; F41.9 Anxiety disorder, unspecified
CPT/HCPCS: 81003; 87086; 87088; 99213; G0463

== ENCOUNTER 2021-07-21 16:08 | Outpatient (CLI) | payer OTHER, SELFPAY ==
--- NOTE | ~2021-07-21 | XR_ITS ---
XR hand RT min 3V DATE: 07/21/2021 16:32 INDICATION: Chronic pain of distal second digit. No injury. TECHNIQUE: 3 views COMPARISON: None FINDINGS: No fracture or dislocation, periosteal reaction or bone destruction. No erosive change or c hondrocalcinosis. Mild osteoarthritic changes noted at some of the interphalangeal joints IMPRESSION: Mild osteoarthritis Reviewed, dictated and finalized at location A. HOUSE ADMINISTRATIVE ASSISTANT IMPRESSION: Mild osteoarthritis
== END 2021-07-21 16:09 | disposition home or self-care (01) ==
LOC: ANHIMG 16:14
PROVIDERS: PCP Family Medicine; Visit Provider Nurse Practitioner Family
DX: M19.041 Primary osteoarthritis, right hand (principal)
CPT/HCPCS: 73130

== ENCOUNTER 2021-10-16 08:03 | Emergency (ER) | payer OTHER, SELFPAY ==
[2021-10-16 08:12] VITALS: BP 129/75; PULSE 89; RESP 20; TEMP 36.4; O2SAT 97
--- NOTE | 2021-10-16 08:12 | ED.UPPEXIN ---
HPI - Extremity Injury (Upper) General Stated Complaint: Sore Throat/Ear Problem Time Seen by Provider: 10/16/21 08:18 Source: patient and RN notes reviewed Mode of arrival: ambulatory Limitations: no limitations History of Present Illness HPI narrative: 41-year-old female presents with concern for 4-day history of cough, fevers, headache, ear pain, worse on the right, sore throat. Reports she was exposed to COVID and strep throat. She reports she has been taking ibuprofen which does help with her symptoms. She denies any ever [id number] intervention. She denies shortness of breath, nausea, vomiting, diarrhea Related Data Home Medications Medication Instructions Recorded Confirmed cetirizine 10 mg tablet (Zyrtec) 10 mg PO DAILY 07/26/19 10/16/21 cholecalciferol (vitamin D3) 125 125 mcg PO DAILY 03/08/20 10/16/21 mcg (5,000 unit) capsule Allergies Allergy/AdvReac Type Severity Reaction Status Date / Time dextromethorphan Allergy Unknown Cough Verified 10/16/21 08:19 Review of Systems Review of Systems: CONSTITUTIONAL: Reports malaise, fever. EYES: Denies visual changes, redness, or discharge. ENT: Reports rhinorrhea, congestion, otalgia and sore throat. CARDIOVASCULAR: Denies chest pain, palpitations, or edema. RESPIRATORY: Reports cough. Denies dyspnea. GASTROINTESTINAL: Denies abdominal pain, nausea, vomiting, diarrhea SKIN: Denies rash or itching. MUSCULOSKELETAL: Denies myalgia. NEUROLOGIC: Reports headache. All systems reviewed & are unremarkable except as noted in HPI and below PMFSH Past Medical History Medical History Anxiety Depression With history of suicidal gesture in 2017. Diarrhea Hypercholesterolemia Hypertension Liver mass Incidental masses noted on the liver with prior CT of the abdomen pelvis, being monitored. Rectal bleeding Seasonal allergies Surgical History Surgical History History of inguinal hernia repair (~1980) History of sinus surgery Family History Family History Mother Hypertension Fibromyalgia Diverticulosis Father Patient's father is in good health, Onset Age: 65 Lymphoma Social History Social History Social History: Surrogate decision maker: Barbara Alonzo, friend. Code status: Full code. Smoking packs per day: 0.5 Smoking cigarettes per day: 10.0 Years smoked: 20 Smoking pack-years: 10.00 Smoking status: Current every day smoker Tobacco type: cigarettes Second hand tobacco smoke exposure: No Alcohol intake: current Drinks per week: 12 Alcohol use details: social drinker Substance use: never Substance use type: does not use Additional living arrangements comments: Lives in her own home in both also with her dog. She has no children. 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 Gender identity (if verbalized by the patient): Female Spiritual care concerns: No Comments At time of signature, agree with nursing past medical, surgical, social and family history. There is no relevant family history pertinent to the presenting complaint Exam Narrative: GENERAL: Well-appearing, well-nourished, and in no acute distress. HEAD: Normocephalic EYES: PERRLA, conjunctivae clear ENT: Nares clear, clear discharge. Mucous membranes moist. Left TM pearly bennett with dull light reflex, right TM purulent and slightly erythematous no tragal tenderness. Oropharynx erythematous without lesions. Tonsils not enlarged and without exudate, no drooling, no hoarseness, no trismus, uvula midline. NECK: Supple. No lymphadenopathy CHEST: Clear to auscultation, breath sounds equal. No wheezing, rhonchi, rales, or stridor. No respiratory distress, speaks in full sentences. Cou
--- NOTE | 2021-10-16 08:56 | ED.URI ---
HPI - URI/Sore Throat General Stated Complaint: Sore Throat/Ear Problem Time Seen by Provider: 10/16/21 08:18 Source: patient and RN notes reviewed Mode of arrival: ambulatory Limitations: no limitations History of Present Illness HPI Narrative: 41-year-old female presents concern for 4-day history of fever, cough, sore throat, headache, bilateral ear pain. Reports exposure to COVID and strep. She reports has been taking ibuprofen which helps with her symptoms sometimes. She denies shortness of breath, nausea, vomiting, diarrhea, trouble swallowing, drooling. MD elicited complaint: cough and sore throat Related Data Home Medications Medication Instructions Recorded Confirmed cetirizine 10 mg tablet (Zyrtec) 10 mg PO DAILY 07/26/19 10/16/21 cholecalciferol (vitamin D3) 125 125 mcg PO DAILY 03/08/20 10/16/21 mcg (5,000 unit) capsule Allergies Allergy/AdvReac Type Severity Reaction Status Date / Time dextromethorphan Allergy Unknown Cough Verified 10/16/21 08:19 Review of Systems Review of Systems: CONSTITUTIONAL: Reports malaise, fever. EYES: Denies visual changes, redness, or discharge. ENT: Reports rhinorrhea, congestion, otalgia and sore throat. CARDIOVASCULAR: Denies chest pain, palpitations, or edema. RESPIRATORY: Reports cough. Denies dyspnea. GASTROINTESTINAL: Denies abdominal pain, nausea, vomiting, diarrhea SKIN: Denies rash or itching. MUSCULOSKELETAL: Denies myalgia. NEUROLOGIC: Reports headache. All systems reviewed & are unremarkable except as noted in HPI and below PMFSH Past Medical History Medical History Anxiety Depression With history of suicidal gesture in 2017. Diarrhea Hypercholesterolemia Hypertension Liver mass Incidental masses noted on the liver with prior CT of the abdomen pelvis, being monitored. Rectal bleeding Seasonal allergies Surgical History Surgical History History of inguinal hernia repair (~1980) History of sinus surgery Family History Family History Mother Hypertension Fibromyalgia Diverticulosis Father Patient's father is in good health, Onset Age: 65 Lymphoma Social History Social History Social History: Surrogate decision maker: Barbara Alonzo, friend. Code status: Full code. Smoking packs per day: 0.5 Smoking cigarettes per day: 10.0 Years smoked: 20 Smoking pack-years: 10.00 Smoking status: Current every day smoker Tobacco type: cigarettes Second hand tobacco smoke exposure: No Alcohol intake: current Drinks per week: 12 Alcohol use details: social drinker Substance use: never Substance use type: does not use Additional living arrangements comments: Lives in her own home in both also with her dog. She has no children. 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 Gender identity (if verbalized by the patient): Female Spiritual care concerns: No Comments At time of signature, agree with nursing past medical, surgical, social and family history. There is no relevant family history pertinent to the presenting complaint Exam Narrative: GENERAL: Nontoxic-appearing and in no acute distress. HEAD: Normocephalic EYES: PERRLA, conjunctivae clear ENT: Nares clear, clear discharge. Mucous membranes moist. Left TM pearly bennett with dull light reflex right TM purulent and slightly erythematous no tragal tenderness. Oropharynx erythematous without lesions. Tonsils not enlarged and without exudate, no drooling, no hoarseness, no trismus, uvula midline. NECK: Supple. No lymphadenopathy CHEST: Clear to auscultation, breath sounds equal. No wheezing, rhonchi, rales, or stridor. No respiratory distress, speaks in full sentences. HEART: Regular rate and rhyt
== END 2021-10-16 08:59 | disposition home or self-care (01) ==
PROVIDERS: Emergency Provider Nurse Practitioner; PCP Family Medicine
DX: H66.91 Otitis media, unspecified, right ear (principal); Z20.822 Contact with and (suspected) exposure to COVID-19; F17.210 Nicotine dependence, cigarettes, uncomplicated; E78.00 Pure hypercholesterolemia, unspecified; I10 Essential (primary) hypertension; F41.9 Anxiety disorder, unspecified; F32.A Depression, unspecified
CPT/HCPCS: 87426; 99213; C9803; G0463

== ENCOUNTER 2021-12-23 11:35 | Emergency (ER) | payer OTHER, SELFPAY ==
[2021-12-23 11:46] VITALS: BP 123/73; PULSE 74; RESP 14; TEMP 36.7; O2SAT 100
[2021-12-23 11:52] VITALS: BP 123/73; PULSE 74; RESP 14; TEMP 36.7; O2SAT 100
--- NOTE | 2021-12-23 11:58 | ED.GENADULT ---
HPI - General Adult General Chief complaint: Urogenital-Female Stated complaint: possible uti Source: patient Mode of arrival: ambulatory Limitations: no limitations History of Present Illness HPI narrative: Patient presents for evaluation of urinary symptoms for the last 3 days. Symptoms include urinary frequency and discomfort. Denies burning but states discomfort is more of a throbbing . She also has some suprapubic discomfort. On the day of symptom onset she had subjective fever. No chills, nausea, vomiting, low back pain vaginal bleeding or discharge. She believes her symptoms are related to urinary tract infection. Related Data Home Medications Medication Instructions Recorded Confirmed cetirizine 10 mg tablet (Zyrtec) 10 mg PO DAILY 07/26/19 12/23/21 cholecalciferol (vitamin D3) 125 125 mcg PO DAILY 03/08/20 12/23/21 mcg (5,000 unit) capsule Allergies Allergy/AdvReac Type Severity Reaction Status Date / Time dextromethorphan Allergy Unknown Cough Verified 12/23/21 11:51 Review of Systems Review of Systems: CONSTITUTIONAL: Denies fever, chills, or sweats. EYES: Denies visual changes, redness, or discharge. ENT: Denies rhinorrhea, congestion, sore throat, or otalgia. CARDIOVASCULAR: Denies chest pain, palpitations, or edema. RESPIRATORY: Denies cough or dyspnea. GASTROINTESTINAL: Reports suprapubic pressure. Denies nausea, vomiting, or diarrhea. GENITOURINARY: Reports urinary frequency and discomfort. SKIN: Denies rash or itching. MUSCULOSKELETAL: Denies back pain, joint pain, or myalgia. NEUROLOGIC: Denies headache, numbness, dizziness, or weakness. PSYCHIATRIC: Denies anxiety or depression. [facility] Past Medical History Medical History Anxiety Depression With history of suicidal gesture in 2017. Diarrhea Hypercholesterolemia Hypertension Liver mass Incidental masses noted on the liver with prior CT of the abdomen pelvis, being monitored. Rectal bleeding Seasonal allergies Surgical History Surgical History History of inguinal hernia repair (~1980) History of sinus surgery Family History Family History Mother Hypertension Fibromyalgia Diverticulosis Father Patient's father is in good health, Onset Age: 65 Lymphoma Social History Social History Social History: Surrogate decision maker: Barbara Alonzo, friend. Code status: Full code. Smoking packs per day: 0.5 Smoking cigarettes per day: 10.0 Years smoked: 20 Smoking pack-years: 10.00 Smoking status: Never smoker Tobacco type: cigarettes Second hand tobacco smoke exposure: No Alcohol intake: current Drinks per week: 12 Alcohol use details: social drinker Substance use: never Substance use type: does not use Additional living arrangements comments: Lives in her own home in both also with her dog. She has no children. 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 Gender identity (if verbalized by the patient): Female Spiritual care concerns: No Exam Narrative: GENERAL: Well-appearing, well-nourished, and in no acute distress. HEAD: Normocephalic, atraumatic. EYES: PERRLA and EOMI. ENT: Nares clear, no rhinorrhea or epistaxis. Mucous membranes moist. Oropharynx without tonsillar hypertrophy exudate or other lesions. Bilateral TMs pearly bennett nonbulging NECK: Supple. No adenopathy or masses. No carotid bruits or JVD CHEST: Clear to auscultation. No respiratory distress. No wheezes rales or rhonchi HEART: Regular rate and rhythm. No murmur heard. Normal peripheral pulses. ABDOMEN: Soft, nontender, nondistended, normal active bowel sounds. BACK: No CVA tenderness EXTREMITIES: Normal range of motion. No edema. SKIN:
== END 2021-12-23 12:06 | disposition home or self-care (01) ==
PROVIDERS: Emergency Provider Nurse Practitioner; PCP Family Medicine
DX: N39.0 Urinary tract infection, site not specified (principal); F17.210 Nicotine dependence, cigarettes, uncomplicated; E78.00 Pure hypercholesterolemia, unspecified; I10 Essential (primary) hypertension; F41.9 Anxiety disorder, unspecified; F32.A Depression, unspecified
CPT/HCPCS: 81003; 87086; 87088; 99213; G0463

== ENCOUNTER 2023-02-10 14:29 | Emergency (ER) | payer OTHER, SELFPAY ==
[2023-02-10 14:34] VITALS: BP 113/84; PULSE 80; RESP 16; TEMP 36.4; O2SAT 99
--- NOTE | 2023-02-10 14:58 | ED.URI ---
HPI - URI/Sore Throat General Stated Complaint: Fever/Congestion/Cough Time Seen by Provider: 02/10/23 14:58 Source: patient and RN notes reviewed Mode of arrival: ambulatory Limitations: no limitations History of Present Illness HPI Narrative: 42-year-old female presents with concern for cough, nasal congestion, chest congestion, low-grade temperature for 2-3 days. Reports she had several negative COVID test at home. Reports she has been taking Tylenol. MD elicited complaint: cough Related Data Home Medications Medication Instructions Recorded Confirmed cetirizine 10 mg tablet (Zyrtec) 10 mg PO DAILY 07/26/19 02/10/23 cholecalciferol (vitamin D3) 125 125 mcg PO DAILY 03/08/20 02/10/23 mcg (5,000 unit) capsule escitalopram oxalate 20 mg tablet 20 mg PO DAILY 02/10/23 02/10/23 Allergies Allergy/AdvReac Type Severity Reaction Status Date / Time dextromethorphan Allergy Unknown Cough Verified 02/10/23 14:40 Review of Systems Review of Systems: CONSTITUTIONAL: Reports malaise, low-grade fever. EYES: Denies visual changes, redness, or discharge. ENT: Reports rhinorrhea, congestion. Denies sinus pain, otalgia and sore throat. CARDIOVASCULAR: Denies chest pain, palpitations, or edema. RESPIRATORY: Reports cough and chest congestion. Denies dyspnea. GASTROINTESTINAL: Denies abdominal pain, nausea, vomiting, diarrhea SKIN: Denies rash or itching. MUSCULOSKELETAL: Denies myalgia. NEUROLOGIC: Denies headache. All systems reviewed & are unremarkable except as noted in HPI and below PMFSH Past Medical History Medical History Anxiety Depression With history of suicidal gesture in 2017. Diarrhea Hypercholesterolemia Hypertension Liver mass Incidental masses noted on the liver with prior CT of the abdomen pelvis, being monitored. Rectal bleeding Seasonal allergies Surgical History Surgical History History of inguinal hernia repair (~1980) History of sinus surgery Family History Family History Mother Hypertension Fibromyalgia Diverticulosis Father Patient's father is in good health, Onset Age: 65 Lymphoma Social History Social History (Reviewed 01/13/23 @ 15:11 by ADRIEL Castellanos Social History: Surrogate decision maker: Barbara Alonzo, friend. Code status: Full code. Smoking packs per day: 0.5 Smoking cigarettes per day: 10.0 Years smoked: 20 Smoking pack-years: 10.00 Smoking status: Never smoker Tobacco type: cigarettes Second hand tobacco smoke exposure: No Alcohol intake: current Drinks per week: 12 Alcohol use details: social drinker Substance use: never Substance use type: does not use Living arrangements: with family Additional living arrangements comments: Lives in her own home in both also with her dog. She has no children. 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 Gender identity (if verbalized by the patient): Female Spiritual care concerns: No Comments At time of signature, agree with nursing past medical, surgical, social and family history. There is no relevant family history pertinent to the presenting complaint Exam Narrative: GENERAL: Well-appearing, well-nourished, and in no acute distress. HEAD: Normocephalic EYES: PERRLA, conjunctivae clear ENT: Nares clear, turbinates edematous and erythematous, clear discharge. Mucous membranes moist. TM pearly bennett with dull light reflex bilaterally; no tragal tenderness. Oropharynx not erythematous without lesions. Tonsils not enlarged and without exudate, no drooling, no hoarseness, no trismus, uvula midline. NECK: Supple. No lymphadenopathy CHEST: Clear to auscultation, breath sounds equal. No wheezing, rhonchi, rales, or stridor. No respiratory distres
== END 2023-02-10 15:10 | disposition home or self-care (01) ==
PROVIDERS: Emergency Provider Nurse Practitioner; PCP Family Medicine
DX: J40 Bronchitis, not specified as acute or chronic (principal); F17.210 Nicotine dependence, cigarettes, uncomplicated; E78.00 Pure hypercholesterolemia, unspecified; I10 Essential (primary) hypertension; F41.9 Anxiety disorder, unspecified; F32.A Depression, unspecified
CPT/HCPCS: 99213; G0463

== ENCOUNTER 2023-05-27 10:30 | Emergency (ER) | payer OTHER, SELFPAY ==
[2023-05-27 10:45] VITALS: BP 107/78; PULSE 70; RESP 16; TEMP 36.6; O2SAT 100
--- NOTE | 2023-05-27 11:18 | ED.URI ---
HPI - URI/Sore Throat General Chief Complaint: Upper Respiratory Infection Stated Complaint: cough/congestion Time Seen by Provider: 05/27/23 11:18 Source: patient, RN notes reviewed and old records reviewed Mode of arrival: ambulatory Limitations: no limitations History of Present Illness HPI Narrative: 42-year-old female presents to the [facility] with complaints of cough and congestion that started may 15 Reports shortness of breath and subjective fevers. Has been taking ibuprofen, Tylenol Mucinex with some relief. Patient reports that she can not take Tessalon Perles due to and dizziness. States she can not take steroids. Onset (ago): week(s) (1.5) Related Data Home Medications Medication Instructions Recorded Confirmed escitalopram oxalate 20 mg tablet 20 mg PO DAILY 02/10/23 05/27/23 Allergies Allergy/AdvReac Type Severity Reaction Status Date / Time dextromethorphan Allergy Unknown Cough Verified 05/27/23 10:44 Review of Systems Review of Systems: All systems reviewed & are unremarkable except as noted in HPI and below Constitutional: Constitutional: Reports no additional constitutional complaints Eyes: Eyes: Reports no additional eye complaints ENT: Reports as per HPI Cardiovascular: Cardiovascular: Reports no additional cardiovascular complaints, Denies chest pain and Denies dyspnea Respiratory: Respiratory: Reports as per HPI, Reports chest congestion, Reports cough and Denies dyspnea Gastrointestinal: Gastrointestinal: Reports no additional gastrointestinal complaints, Denies abdominal pain, Denies nausea and Denies vomiting Musculoskeletal: Musculoskeletal: Reports no additional musculoskeletal complaints Integumentary/Breasts: Skin/Breast: Reports system reviewed and no additional complaints, except as docu Neurologic: Reports system reviewed and no additional complaints, except as documented Psychiatric: Psychiatric: Reports no additional psychiatric complaints Allergic/Immunologic: Allergic/Immunologic: Reports no additional allergic/immunologic complaints [facility] Past Medical History Medical History Anxiety Depression With history of suicidal gesture in 2017. Diarrhea Hypercholesterolemia Hypertension Liver mass Incidental masses noted on the liver with prior CT of the abdomen pelvis, being monitored. Rectal bleeding Seasonal allergies Surgical History Surgical History History of inguinal hernia repair (~1980) History of sinus surgery Family History Family History Mother Hypertension Fibromyalgia Diverticulosis Father Patient's father is in good health, Onset Age: 65 Lymphoma Social History Social History Social History: Surrogate decision maker: Barbara Clinton, friend. Code status: Full code. Smoking packs per day: 0.5 Smoking cigarettes per day: 10.0 Years smoked: 20 Smoking pack-years: 10.00 Smoking status: Never smoker Tobacco type: cigarettes Second hand tobacco smoke exposure: No Alcohol intake: current Drinks per week: 12 Alcohol use details: social drinker Substance use: never Substance use type: does not use Living arrangements: with family Additional living arrangements comments: Lives in her own home in both also with her dog. She has no children. 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 Gender identity (if verbalized by the patient): Female Spiritual care concerns: No Comments At the time of my signature, I reviewed and agree with the nursing past medical, surgical, social, and family history. There is no relevant family history pertinent to the patient complaint. Exam Const: General: cooperative, healthy ap
== END 2023-05-27 11:40 | disposition home or self-care (01) ==
PROVIDERS: Emergency Provider Nurse Practitioner; PCP Family Medicine
DX: J40 Bronchitis, not specified as acute or chronic (principal); F17.210 Nicotine dependence, cigarettes, uncomplicated; E78.00 Pure hypercholesterolemia, unspecified; I10 Essential (primary) hypertension; F41.9 Anxiety disorder, unspecified; F32.A Depression, unspecified
CPT/HCPCS: 99213; G0463

== ENCOUNTER 2023-10-29 08:58 | Emergency (ER) | payer OTHER, SELFPAY ==
[2023-10-29 09:10] VITALS: BP 103/71; PULSE 88; RESP 18; TEMP 36.8; O2SAT 99
--- NOTE | 2023-10-29 09:35 | ED.GENADULT ---
HPI - General Adult General Chief complaint: Extremity Injury, Lower Stated complaint: Right leg pain and numbness Time Seen by Provider: 10/29/23 09:30 Source: patient, RN notes reviewed and old records reviewed Mode of arrival: ambulatory Limitations: no limitations History of Present Illness HPI narrative: 43 year old female presents to [facility] with complaints of right hip pain with some radiation to groin and tenderness to her right thigh for the past 2 days. Patient denies any recent fall or any recent injury.Patient reports some occasional radiation down right outer leg to lateral foot, denies any tingling or feelings of numbness, strong right pedal pulse. Patient reports no back pain no difficulty with passing urine or stools, denies any saddle paraesthesia.Patient is noted to be walking with a limp states she has not taken any OTC medication for her discomfort. MD complaint: right hip pain, right thigh pain Onset (ago): day(s) (2) Location: right (hip and thigh) Radiation: extremity (occasional radiation down leg to lateral foot) Severity scale (1-10): 5 Quality: aching Relieving factors: rest Exacerbating factors: movement and other (ambulation) Treatments prior to arrival: none Related Data Allergies Allergy/AdvReac Type Severity Reaction Status Date / Time dextromethorphan Allergy Unknown Cough Verified 06/23/23 15:06 Review of Systems Review of Systems: CONSTITUTIONAL: Denies fever, chills, or sweats. EYES: Denies visual changes, redness, or discharge. ENT: Denies rhinorrhea, congestion, sore throat, or otalgia. CARDIOVASCULAR: Denies chest pain, palpitations, or edema. RESPIRATORY: Denies cough or dyspnea. GASTROINTESTINAL: Denies abdominal pain, nausea, vomiting, or diarrhea. GENITOURINARY: Denies dysuria or hematuria. SKIN: Denies rash or itching. MUSCULOSKELETAL: Denies back pain, reports right hip pain and right thigh discomfort, or myalgia. NEUROLOGIC: Denies headache, numbness, or weakness. PSYCHIATRIC: Reports history of anxiety or depression. All systems reviewed & are unremarkable except as noted in HPI and below PMFSH Past Medical History Medical History Anxiety Depression With history of suicidal gesture in 2017. Diarrhea Hypercholesterolemia Hypertension Liver mass Incidental masses noted on the liver with prior CT of the abdomen pelvis, being monitored. Rectal bleeding Seasonal allergies Surgical History Surgical History History of inguinal hernia repair (~1980) bilateral as child History of sinus surgery Family History Family History Mother Hypertension Fibromyalgia Diverticulosis Father Patient's father is in good health, Onset Age: 65 Lymphoma Social History Social History Social History: Surrogate decision maker: Barbara Alonzo, friend. Code status: Full code. Smoking packs per day: 0.5 Smoking cigarettes per day: 10.0 Years smoked: 20 Smoking pack-years: 10.00 Smoking status: Current every day smoker Tobacco type: cigarettes Second hand tobacco smoke exposure: No Alcohol intake: current Drinks per week: 12 Alcohol use details: social drinker Substance use: never Substance use type: does not use Living arrangements: with family Additional living arrangements comments: Lives in her own home in both also with her dog. She has no children. 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 Gender identity (if verbalized by the patient): Female Spiritual care concerns: No Comments At time of signature, agree with nursing past medical, surgical, social and family history. There is no relevant family history pertinent to the presenting compla
== END 2023-10-29 09:58 | disposition home or self-care (01) ==
PROVIDERS: Emergency Provider Registered Nurse; PCP Family Medicine
DX: M25.551 Pain in right hip (principal); M79.651 Pain in right thigh; F17.210 Nicotine dependence, cigarettes, uncomplicated; E78.00 Pure hypercholesterolemia, unspecified; I10 Essential (primary) hypertension; F41.9 Anxiety disorder, unspecified; F32.A Depression, unspecified
CPT/HCPCS: 99213; G0463

== ENCOUNTER 2024-03-04 09:39 | Emergency (ER) | payer OTHER, SELFPAY ==
[2024-03-04 09:45] VITALS: BP 120/93; PULSE 71; RESP 16; TEMP 36.7; O2SAT 99
--- NOTE | 2024-03-04 09:48 | ED.FEMALEGU ---
HPI - Female Genitourinary General Chief complaint: Urogenital-Female Stated complaint: Urinary Problems Time Seen by Provider: 03/04/24 09:49 Source: patient and RN notes reviewed Mode of arrival: ambulatory Limitations: no limitations History of Present Illness HPI Narrative: 43-year-old female presented for complaint of burning with urination, frequency and urgency over the past 2 days. Reports low grade fever yesterday. She states when she urinates she feels chills, and and that is how she knows she has UTI. Denies hematuria, nausea, vomiting, abdominal pain, flank pain, constipation, diarrhea. She took azo. Related Data Allergies Allergy/AdvReac Type Severity Reaction Status Date / Time dextromethorphan Allergy Unknown Cough Verified 06/23/23 15:06 prednisone Allergy Unknown Verified 03/04/24 09:50 Review of Systems Review of Systems: CONSTITUTIONAL: Denies body aches, fever, chills, or sweats. CARDIOVASCULAR: Denies chest pain, palpitations, or edema. RESPIRATORY: Denies cough or dyspnea. GASTROINTESTINAL: reports lower abdominal pain, Denies nausea, vomiting, or diarrhea. GENITOURINARY: Reports dysuria, frequency, urgency, denies hematuria, flank pain MUSCULOSKELETAL: Denies back pain or myalgia. [facility] Past Medical History Medical History Anxiety Depression With history of suicidal gesture in 2017. Diarrhea Hypercholesterolemia Hypertension Liver mass Incidental masses noted on the liver with prior CT of the abdomen pelvis, being monitored. Rectal bleeding Seasonal allergies Surgical History Surgical History History of inguinal hernia repair (~1980) bilateral as child History of sinus surgery Family History Family History Mother Hypertension Fibromyalgia Diverticulosis Father Patient's father is in good health, Onset Age: 65 Lymphoma Social History Social History Social History: Surrogate decision maker: Barbara Alonzo, friend. Code status: Full code. Smoking packs per day: 0.5 Smoking cigarettes per day: 10.0 Years smoked: 20 Smoking pack-years: 10.00 Smoking status: Current every day smoker Tobacco type: cigarettes Second hand tobacco smoke exposure: No Alcohol intake: current Drinks per week: 12 Alcohol use details: social drinker Substance use: never Substance use type: does not use Living arrangements: with family Additional living arrangements comments: Lives in her own home in both also with her dog. She has no children. 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 Gender identity (if verbalized by the patient): Female Spiritual care concerns: No Comments At time of signature, I have reviewed and agree with nursing past medical, surgical, social and family history unless otherwise noted. Please see nursing chart for further information. There is no relevant family history pertinent to the presenting complaint Exam Narrative: GENERAL: Well-appearing and in no acute distress. HEAD: Normocephalic EYES: EOMI. . ENT: Mucous membranes pink and moist. NECK: Normal AROM. Supple. CHEST: No respiratory distress. Clear to auscultation. HEART: Regular rate and rhythm. ABDOMEN: Soft, nontender, nondistended, normal active bowel sounds. No CVA tenderness SKIN: Warm, dry, no rash. NEURO: No focal deficits. Alert and oriented x3. Gait steady. PSYCH: Normal affect. Course Course Emergency Course: Patient is aware of diagnosis, understands and agrees to treatment plan. Anticipatory guidance given. Patient agrees to follow-up as directed and is aware of reasons to seek care at the emergency department. Portions of this record may hav
[2024-03-04 09:57] LABS: EDUAAPPEAR Clear; EDUABILI Negative (Negative); EDUABLOOD 1+ (Negative); EDUACOLOR1 Light/Pale; EDUAGLUCOSE Negative (Negative); EDUAKETONE Negative (Negative); EDUALEUKO 1+ (Negative); EDUANITRATE Negative (Negative); EDUAPROTEIN Negative (Negative); EDUAUROBILI 0.2
== END 2024-03-04 10:03 | disposition home or self-care (01) ==
PROVIDERS: Emergency Provider Nurse Practitioner Family; PCP Family Medicine
DX: N39.0 Urinary tract infection, site not specified (principal); I10 Essential (primary) hypertension; F17.210 Nicotine dependence, cigarettes, uncomplicated
CPT/HCPCS: 81003; 87077; 87086; 87186; 99213; G0463

== ENCOUNTER 2024-06-17 09:34 | Emergency (ER) | payer OTHER, SELFPAY ==
--- OUTSIDE RECORDS SUMMARY | 2024-06-17 09:38 | XMS_ITS | Clinical Summary ---
Author Organization [facility] Address [address] [place] [address] Care Team Providers Care Residential Solar Consultant Name Role Phone Андрей Bolton MD Primary Care Provider Allergies Active Allergy Reactions Criticality Noted Date Comments Cough Syrup W/Decongestant Hives High 4 Dextromethorphan Cough Low 02/22/2012 Guaifenesin Cough Low 02/22/2012 Medications lisinopril-hydr oCHLOROthiazide (ZESTORETIC) 10-12.5 mg per tablet 2 Active escitalopram (LEXAPRO) 20 mg tablet 2 Active cetirizine (ZyrTEC) 10 mg capsule Take by mouth Active benzonatate (TESSALON) 200 mg capsuleIndicati ons:Acute non-recurrent frontal sinusitis Take 1 capsule (200 mg total) by mouth 3 (three) times a day as needed for cough 90 capsule 1 2 Active Additional Information Patient not taking.Reported on 06/15/2022 fluconazole (DIFLUCAN) 150 mg tabletIndicatio ns:Antibiotic-i nduced yeast infection Take 1 tablet (150 mg total) by mouth as directed Take one tab now. Repeat in 7 days if symptoms persist. 2 tablet 3 Active Active Problems No known active problems Surgical History Surgery Date Site/Laterality Comments SINUS SURGERY 05/24/2001 - 05/23/2002 Medical History Medical History Date Comments Hypertension Anxiety Depression IBS (irritable bowel syndrome) Social History Tobacco Use Types Packs/Day Years Used Date Smoking Tobacco: Former Cigarettes Tobacco Cessation:Counseling Given: Not Answered Personal Safety Answer Date Recorded Getting School Help Needed Not on file 07/24 Comments Unknown Sex and Gender Information Value Date Recorded Sex Assigned at Not on file Legal Sex Female 10:54 AM CDT Gender Identity Not on file Sexual Orientation Not on file Obstetrics History Last Filed Vital Signs Vital Sign Reading Time Taken Comments Blood Pressure 118/68 06/15/2022 1:19 PM BROADCAST PROGRAM DIRECTOR Pulse 84 06/15/2022 1:19 PM BROADCAST PROGRAM DIRECTOR Temperature 37.7 ??C (99.8 ??F) 06/15/2022 1:19 PM CS T Respiratory Rate 20 06/15/2022 1:19 PM BROADCAST PROGRAM DIRECTOR Oxygen Saturation 100% 06/15/2022 1:19 PM BROADCAST PROGRAM DIRECTOR Inhaled Oxygen Concentration - - Weight 64.5 kg (142 lb 3.2 oz) 06/15/2022 1:19 P M BROADCAST PROGRAM DIRECTOR Height 160 cm (5' 3 ) 06/15/2022 1:19 PM BROADCAST PROGRAM DIRECTOR Body Mass Index 25.19 06/15/2022 1:19 PM BROADCAST PROGRAM DIRECTOR Plan of Treatment Health Maintenance Due Date Last Done Comments Breast Cancer Screening-Mammogram 1978 Cervical Cancer Screening 1978 Colon Cancer Screening-Colonoscopy 1978 Depression Screening 1978 Hepatitis C Screening 1978 DTaP/Tdap/Td Vaccine (1 - Tdap) 1989 Hepatitis B Screening 1996 Regular Well Visit/Exam 18-64 1996 Covid-19 Vaccine (2023-2 5 season) 2024 05/09/2021, 08/10/2020, 07/13/2020 Influenza Vaccine (#1) 2024 , 04/07/2020 HPV Vaccines Aged Out No longer eligi ble based on patient's age to complete this topic Pneumococcal vaccine <65 Aged Out No longer eligible based on patient's age to complete this topic Insurance [facility] CHOICE PLUS Care Teams Residential Solar Consultant Relationship Specialty Start Date End Date Андрей Bolton MD [address] [facility] [address] [place] [address] PCP - General 12/23/16
--- OUTSIDE RECORDS SUMMARY | 2024-06-17 09:38 | XMS_ITS | Clinical Summary ---
Author Organization [facility] Address [address] [address] Phone Care Team Providers Care Violin Maker Hand Name Role Phone Андрей Bolton MD Primary Care Provider [phone] Allergies Active Allergy Reactions Criticality Noted Date Comments Cough Syrup W/Decongestant Hives High 4 Medications escitalopram oxalate (LEXAPRO) 20 mg tablet 05/12/2014 Active lisinopril-hydro chlorothiazide (ZESTORETIC) 10-12.5 mg tablet 05/12/2014 Active CETIRIZINE HCL (ZYRTEC ORAL) Take by mouth. Active Active Problems Patient Care Coordination No te Formatting of this note migh t be different from the original. 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 Left breast mass 05/24/2014 Overview (05/24/2014): Plan core Mitral valve prolapse HBP (high blood pressure) Anxiety Depression H/O seasonal allergies Fatigue Encounters Date Type Department Care Team Description 06/13/2024 External Device Data [facility] ABSTRACTION Provider, Abstract 06/06/2024 External Device Data [facility] ABSTRACTION Provider, Abstract 04/25/2024 External Device Data [facility] ABSTRACTION Provider, Abstract 04/11/2024 External Device Data [facility] ABSTRACTION Provider, Abstract 04/08/2024 10:41 AM COMMUNITY SERVICE AIDE - 04/08/2024 11:59 PM COMMUNITY SERVICE AIDE Hospital Encounter [facility] [address] [place] [id number] Андрей Bolton MD Discharge Disposition: Home or Self Care from Last 3 Months Family History Medical History Relation Name Comments Lymphoma Father Heart Disease Maternal Grandmother Hypertension Mother Melanoma Paternal Grandfather bone cx Breast Cancer Paternal Grandmother Relation Name Status Comments Father Alive Maternal Grandmother Mother Paternal Grandfather Paternal Grandmother Social History Tobacco Use Types Packs/Day Years Used Date Smoking Tobacco: Every Day Cigarettes 0.5 12 Smokeless Tobacco: Never Alcohol Use Standard Drinks/Week Comments Yes 0 (1 standard drink = 0.6 oz pur e alcohol) MODERATE Comments No Sex and Gender Information Value Date Recorded Sex Assigned at Not on file Legal Sex Female 9:58 AM COMMUNITY SERVICE AIDE Gender Identity Not on file Sexual Orientation Not on file Occupation Industry Job Start Date Job End Date Not on file Not on file Not on file Not on file Last Filed Vital Signs Vital Sign Reading Time Taken Comments Blood Pressure 118/91 05/23/2014 10:30 AM COMMUNITY SERVICE AIDE Pulse 76 05/23/2014 10:30 AM COMMUNITY SERVICE AIDE Temperature - - Respiratory Rate - - Oxygen Saturation - - Inhaled Oxygen Concentration - - Weight 61.9 kg (136 lb 6.4 oz) 05/23/2014 10:30 AM COMMUNITY SERVICE AIDE Height 161.3 cm (5' 3.5 ) 05/23/2014 10:30 AM CS T Body Mass Index 23.78 05/23/2014 10:30 AM COMMUNITY SERVICE AIDE Plan of Treatment Health Maintenance Due Date Last Done Comments PNEUMOCOCCAL VACCINE 0-64 YEARS (1 of 2 - PCV) 1984 DTAP/TDAP/TD VACCINES (1 - Tdap) 1997 HEPATITIS B VACCINES (1 of 3 - 19+ 3-dose series) 1997 CERVICAL CANCER SCREENING 2008 COLORECTAL SCREENING 07/24/2023 Colorectal Cancer Screening 07/24/2023 FIT-DNA Q 3 years 07/24/2023 FIT/FOBT Q 1 year 07/24/2023 Flex Sig/CT Colonography Q 5 years 07/24/2023 INFLUENZA VACCINE (#1) 2023 BREAST CANCER SCREENING 04/08/2025 04/08/20 24, 02/03/2023, 11/05/2021, Additional history exists HPV VACCINES Aged Out No longer eligi ble based on patient's age to complete this topic Procedures Procedure Name Priority Date/Time Associated Diagnosis Comments MAMMO 3D SHELLY SCREEN BILAT W OR WO CAD Routine 04/08/2024 10:54 AM COMMUNITY SERVICE AIDE Encounter for mammogram to establish baseline mammogram from Last 3 Months Results * MAMMO 3D SHELLY SCREEN BILAT W OR WO CAD (04/08/2024 10:54 AM COMMUNITY SERVICE AIDE) Anatomical Region Laterality Modality Breast Bilateral Mammography 04/08/2024 10:5 4 AM COMMUNITY SERVICE AIDE Impressions 04/08/2024 2:45 PM COMMUNITY SERVICE AIDE IMPRESSION: ?? Negative bilateral screening mammogram. Recommend routine followup. ?? OVERALL FINAL ASSESSMENT: BI-RADS CATEGORY 1: Negative DICTATION LOCATION: [facility] 04/08/2024 2:45 PM COMMUNITY SERVICE AIDE BILATERAL SCREENING DIGITAL MAMMOGRAMS WITH COMPUTER ASSISTED DIAGNOSIS WITH TOMOGRAPHY DATE: 04/08/2024 10:54 AM HISTORY: Annual screening. ?? COMPARISON: 02/03/2023 and 11/05/2021. TECHNIQUE: A bilateral screening mammogram was performed. Low-dose full-field digital breast tomosynthesis examination was performed with 2D and 3D acquisitions. Examination is read in conjunction with computer aided detection. ?? BREAST COMPOSITION: Heterogeneously dense, which limits the sensitivity of mammography. FINDINGS: No new masses, suspicious calcifications, or areas of asymmetry or distortion are identified. The images were reviewed using the CAD system. ?? Procedure Note Yvette Mcgill MD - 04/08/2024 BILATERAL SCREENING DIGITAL MAMMOGRAMS WITH COMPUTER ASSISTED DIAGNOSIS WITH TOMOGRAPHY DATE: 04/08/2024 10:54 AM HISTORY: Annual screening. COMPARISON: 02/03/2023 and 11/05/2021. TECHNIQUE: A bilateral screening mammogram was performed. Low-dose full-field digital breast tomosynthesis examination was performed with 2D and 3D acquisitions. Examination is read in conjunction with computer aided detection. BREAST COMPOSITION: Heterogeneously dense, which limits the sensitivity of mammography. FINDINGS: No new masses, suspicious calcifications, or areas of asymmetry or distortion are identified. The images were reviewed using the CAD system. IMPRESSION: Negative bilateral screening mammogram. Recommend routine followup. OVERALL FINAL ASSESSMENT: BI-RADS CATEGORY 1: Negative DICTATION LOCATION: [facility] Андрей Bolton MD MAMMO ORDERABLES Final Result from Last 3 Months Insurance [employer] [facility] [id number] Care Teams Violin Maker Hand Relationship Specialty Start Date End Date Андрей Bolton MD PCP - General Family Practice 05/23/14
--- OUTSIDE RECORDS SUMMARY | 2024-06-17 09:38 | XMS_ITS | Referral Summary ---
Author Organization [facility] Address [address] [place] [address] Care Team Providers Care Technical Maintenance Technician Name Role Phone Андрей Bolton MD Primary [...] Active Active Problems No known active problems Social History Tobacco Use Types Packs/Day Years Used Date Smoking Tobacco: Former Cigarettes Tobacco Cessation:Counseling Given: Not Answered Personal Safety Answer Date Recorded Getting School Help Needed Not on file 07/24 Comments Unknown Sex and Gender Information Value Date Recorded Sex Assigned at Not on file Legal Sex Female 10:54 AM CDT Gender Identity Not on file Sexual Orientation Not on file Last Filed Vital Signs Vital Sign Reading Time Taken Comments Blood Pressure 118/68 06/15/2022 1:19 PM DEVELOPMENT CONSULTANT Pulse 84 06/15/2022 1:19 PM DEVELOPMENT CONSULTANT Temperature 37.7 ??C (99.8 ??F) 06/15/2022 1:19 PM CS T Respiratory Rate 20 06/15/2022 1:19 PM DEVELOPMENT CONSULTANT Oxygen Saturation 100% 06/15/2022 1:19 PM DEVELOPMENT CONSULTANT Inhaled Oxygen Concentration - - Weight 64.5 kg (142 lb 3.2 oz) 06/15/2022 1:19 P M DEVELOPMENT CONSULTANT Height 160 cm (5' 3 ) 06/15/2022 1:19 PM DEVELOPMENT CONSULTANT Body Mass Index 25.19 06/15/2022 1:19 PM DEVELOPMENT CONSULTANT Plan of Treatment Not on file Insurance [facility] H[facility]PP[place] [address] Care Teams Technical Maintenance Technician Relationship Specialty Start Date End Date Андрей Bolton MD [address] [facility] [address] [place] [address] PCP - General 12/23/16
[2024-06-17 09:48] VITALS: BP 120/78; PULSE 92; RESP 16; TEMP 37.1; O2SAT 99
--- NOTE | 2024-06-17 10:05 | ED_ITS ---
HPI - General Adult General Chief complaint: Upper Respiratory Infection Stated complaint: headache, fever, body aches Source: patient Mode of arrival: ambulatory Limitations: no limitations History of Present Illness HPI narrative: Patient presents for evaluation of sinus symptoms. She has experience a headache for several days. She has a history of headaches and attributed her symptoms to allergies. For the past two days she has experienced sinus congestion, thick yellow nasal drainage and fever. She has taken tylenol for her symptoms. 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 She smokes 1/4 ppd. No nausea, vomiting, diarrhea or SOB. Related Data Allergies Allergy/AdvReac Type Severity Reaction Status Date / Time dextromethorphan Allergy Unknown Cough Verified 04/03/24 09:56 prednisone Allergy Unknown Verified 04/03/24 09:56 Review of Systems Review of Systems: CONSTITUTIONAL: Denies fever, chills, or sweats. EYES: Denies visual changes, redness, or discharge. ENT: Reports sinus congestion and thick yellow nasal drainage. Denies otalgia. CARDIOVASCULAR: Denies chest pain, palpitations, or edema. RESPIRATORY: Denies cough or dyspnea. GASTROINTESTINAL: Denies abdominal pain, nausea, vomiting, or diarrhea. GENITOURINARY: Denies dysuria or hematuria. SKIN: Denies rash or itching. MUSCULOSKELETAL: Denies back pain, joint pain, or myalgia. NEUROLOGIC: Reports headache. Denies numbness, dizziness, or weakness. PSYCHIATRIC: Denies anxiety or depression. [facility] Past Medical History Medical History Diarrhea Rectal bleeding Depression With history of suicidal gesture in 2017. Liver mass Incidental masses noted on the liver with prior CT of the abdomen pelvis, being monitored. Anxiety Hypertension Hypercholesterolemia Seasonal allergies Surgical History Surgical History History of inguinal hernia repair (~1980) bilateral as child History of sinus surgery Family History Family History Mother Hypertension Fibromyalgia Diverticulosis Father Patient's father is in good health, Onset Age: 65 Lymphoma Social History Social History Social History: Surrogate decision maker: Barbara Alonzo, friend. Code status: Full code. Smoking packs per day: 0.5 Smoking cigarettes per day: 10.0 Years smoked: 20 Smoking pack-years: 10.00 Smoking status: Current every day smoker Tobacco type: cigarettes Second hand tobacco smoke exposure: No Alcohol intake: current Drinks per week: 12 Alcohol use details: social drinker Substance use: never Substance use type: does not use Living arrangements: with family Additional living arrangements comments: Lives in her own home in both also with her dog. She has no children. 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 Gender identity (if verbalized by the patient): Female Spiritual care concerns: No Exam Narrative: GENERAL: Well-appearing, well-nourished, and in no acute distress. HEAD: Normocephalic, atraumatic. EYES: PERRLA and EOMI. ENT: There is frontal and bilateral maxillary sinus tenderness. There is thick yellow nasal drainage present. Mucous membranes moist. Oropharynx without tonsillar hypertrophy exudate or other lesions. Bilateral TMs pearly bennett nonbulging NECK: Supple. No adenopathy or masses. No carotid bruits or JVD CHEST: Clear to auscultation. No respiratory distress. No wheezes rales or rhonchi HEART: Regular rate and rhythm. No murmur heard. Normal peripheral pulses. ABDOMEN: Soft, nontender, nondistended, normal active bowel sounds. EXTREMITIES: Normal range of motion. No edema. SKIN: Warm, dry, no rash. NEURO: No focal deficits. Alert and oriented x3. PSYCH: Normal mood and affect. Course Course Emergency Course: This is a 43-year-old female presents for evaluation of sinus symptoms. She me ets criteria for bacterial sinusitis based upon fever and mucopurulent nasal drainage. Will dc with augmentin. Advised smoking cessation. Increase hydration. [id number] agents for symptom management. Follow up with primary provider. Go to the ER for worsening symptoms. Patient in agreement with plan of care. Level of Care: Express Care Visit Vital Signs Vital signs: Vital Signs Temperature 37.1 C 06/17/24 09:48 Pulse Rate 92 06/17/24 09:48 Respiratory Rate 16 06/17/24 09:48 Blood Pressure 120/78 06/17/24 09:48 Pulse Oximetry 99 06/17/24 09:48 Oxygen Delivery Room Air 06/17/24 09:48 Temperature 37.1 C 06/17/24 09:48 Pulse Rate 92 06/17/24 09:48 Respiratory Rate 16 06/17/24 09:48 Blood Pressure 120/78 06/17/24 09:48 Pulse Oximetry 99 06/17/24 09:48 Oxygen Delivery Room Air 06/17/24 09:48 Medical Decision Making Vital Signs Vital Signs: Vital Signs Temperature 37.1 C 06/17/24 09:48 Pulse Rate 92 06/17/24 09:48 Respiratory Rate 16 06/17/24 09:48 Blood Pressure 120/78 06/17/24 09:48 Pulse Oximetry 99 06/17/24 09:48 Oxygen Delivery Room Air 06/17/24 09:48 Temperature 37.1 C 06/17/24 09:48 Pulse Rate 92 06/17/24 09:48 Respiratory Rate 16 06/17/24 09:48 Blood Pressure 120/78 06/17/24 09:48 Pulse Oximetry 99 06/17/24 09:48 Oxygen Delivery Room Air 06/17/24 09:48 Discharge Plan Discharge Clinical Impression: Sinusitis Patient Disposition: Home, Self-Care Condition: Stable Instructions: Antibiotic Form, Sinusitis (ED) Patient Language: Belarusian Prescriptions: New amoxicillin-pot clavulanate 875-125 mg tablet 1 tablet PO Q12H Qty: 20 0RF No Action alprazolam 0.25 mg tablet 0.25 mg PO BID PRN (Reason: anxiety) Qty: 30 0RF escitalopram oxalate 20 mg tablet 20 mg PO DAILY Qty: 90 1RF Rx Instructions: TAKE 1 TABLET BY MOUTH DAILY lisinopril-hydrochlorothiazide 10-12.5 mg tablet 1 tablet PO DAILY Qty: 90 2RF Follow-up/Referrals: Андрей Bolton MD [Primary Care Provider] - Stand Alone Forms: Work/School Release IP Time of Disposition: 10:01
== END 2024-06-17 10:08 | disposition home or self-care (01) ==
PROVIDERS: Emergency Provider Nurse Practitioner; PCP Family Medicine
DX: J32.9 Chronic sinusitis, unspecified (principal); I10 Essential (primary) hypertension; F41.8 Other specified anxiety disorders; E78.00 Pure hypercholesterolemia, unspecified; F17.210 Nicotine dependence, cigarettes, uncomplicated
CPT/HCPCS: 99213; G0463